=== PATIENT | male | born 1965 | race Caucasian/White ===

== ENCOUNTER 2020-11-02 10:35 | Emergency (ER) | payer BC ==
[2020-11-02] MEDS ORDERED: Doxycycline 100 MG Cap PO ONE (12:47)
--- NOTE | 2020-11-02 14:06 | EDM.PDOC ---
ED HPI GENERAL MEDICAL PROBLEM - General Chief Complaint: Bite:Animal, Insect Stated Complaint: TICK BITE , SWOLLEN HAND Time Seen by Provider: 11/02/20 12:30 Source of Information: Reports: Patient History Limitations: Reports: No Limitations - History of Present Illness INITIAL COMMENTS - FREE TEXT/NARRATIVE: This is a 55-year-old male presents concerns of an area of redness between his second and third digits in the right hand. He reports that he pulled a tick out of the area approximately 48 hours ago. Since this time he is noticed persistent redness and now some swelling extension of the redness at the back of his hand. He is concerned for possible infection. He is not sure what type of tick it was. - Related Data Allergies Allergy/AdvReac Type Severity Reaction Status Date / Time Latex, Natural Rubber Allergy Rash Verified 11/02/20 12:14 Penicillins Allergy Rash Verified 11/02/20 12:14 Home Meds: Home Meds Apixaban [Eliquis] 1 tab PO BID 11/02/20 [History] Doxycycline [Vibra-Tabs] 100 mg PO Q12HR #20 tab 11/02/20 [Rx] Tamsulosin [Flomax] 1 tab PO DAILY 11/02/20 [History] atorvaSTATin [Lipitor] 20 mg PO DAILY 11/02/20 [History] Past Medical History Cardiovascular History: Reports: High Cholesterol Respiratory History: Reports: PE Social & Family History - Tobacco Use Tobacco Use Status *Q: Never Tobacco User ED ROS GENERAL - Review of Systems Review Of Systems: See Below Constitutional: Reports: No Symptoms HEENT: Reports: No Symptoms Respiratory: Reports: No Symptoms Cardiovascular: Reports: No Symptoms Endocrine: Reports: No Symptoms GI/Abdominal: Reports: No Symptoms : Reports: No Symptoms Musculoskeletal: Reports: No Symptoms Skin: Reports: Erythema Neurological: Reports: No Symptoms Psychiatric: Reports: No Symptoms Hematologic/Lymphatic: Reports: No Symptoms Immunologic: Reports: No Symptoms ED EXAM, ANIMAL BITE - Physical Exam Exam: See Below Exam Limited By: No Limitations General Appearance: Alert, WD/WN, No Apparent Distress Eye Exam: Bilateral Eye: EOMI, Normal Inspection, PERRL Ears: Normal External Exam Nose: Normal Inspection Throat/Mouth: Normal Inspection Head: Atraumatic, Normocephalic Neck: Normal Inspection, Supple, Non-Tender, Full Range of Motion Respiratory/Chest: No Respiratory Distress Cardiovascular: Regular Rate, Rhythm GI/Abdominal: No Distention Extremities: Other (Area of swelling and redness between the second and third digits of the right hand with extension of the erythema up to the dorsum of the right hand. No fluctuance or purulence.) Neurological: Alert, Oriented Course - Vital Signs Last Recorded V/S: Last Vital Signs Temp 36.4 C 11/02/20 12:20 Pulse 59 L 11/02/20 12:20 Resp 14 11/02/20 12:20 BP 126/79 11/02/20 12:20 Pulse Ox 98 11/02/20 12:20 - Orders/Labs/Meds Meds: Medications Discontinued Medications Generic Name Dose Route Start Last Admin Trade Name Freq PRN Reason Stop Dose Admin Doxycycline Hyclate 100 mg 11/02/20 12:47 11/02/20 12:54 Doxycycline 100 Mg Cap PO 11/02/20 12:48 100 mg ONETIME ONE Administration - Re-Assessments/Exams Free Text/Narrative Re-Assessment/Exam: 55-year-old male presents with concerns of tick bite and surrounding erythema between the second third digit on his right hand. Has an obvious area of irritation surrounded by redness. He does not know the type of species he was bitten by. At a minimum I think he has a cellulitis from the bite vs perhaps this is erythema migrans. Given how Lyme is endemic in our area and repercussions of not treating, we elected to start him on a course of doxycycline that will cover him for both cellulitis and perhaps tickborne infection. He is visiting our area and have asked him to follow-up with his primary doctor when he returns home. 11/03/20 17:03 Departure - Departure Time of Disposition: 12:48 Disposition: Home, Self-Care 01 Clinical Impression: Tick bite Qualifiers: Encounter type: initial encounter Qualified Code(s): W57.XXXA - Bitten or stung by nonvenomous insect and other nonvenomous arthropods, initial encounter Cellulitis Qualifiers: Site of cellulitis: extremity Site of cellulitis of extremity: finger Laterality: right Qualified Code(s): L03.011 - Cellulitis of right finger - Discharge Information *PRESCRIPTION DRUG MONITORING PROGRAM REVIEWED*: No *COPY OF PRESCRIPTION DRUG MONITORING REPORT IN PATIENT ADRIANA: No Prescriptions: Doxycycline [Vibra-Tabs] 100 mg PO Q12HR #20 tab Instructions: Tick Bite Information, Adult, [id number] Referrals: PCP,None [Primary Care Provider] - Forms: ED Department Discharge Additional Instructions: As discussed, since you pulled a tick off of your hand and you have the findings of possible Lyme disease we are starting you on 12 days of doxycycline. It is good to follow-up with your primary physician when you are back in [place]. If you notice that the redness is increasing, you are increasing pain after couple days on antibiotics please follow-up with a physician promptly. Thank you for trusting us care for you today. Sepsis Event Note (ED) - Evaluation Sepsis Screening Result: No Definite Risk
== END 2020-11-02 13:07 | disposition home or self-care (01) ==
LOC: JP.ED 10:35
DX: S60.460A Insect bite (nonvenomous) of right index finger, initial encounter (principal); S60.462A Insect bite (nonvenomous) of right middle finger, initial encounter; L03.011 Cellulitis of right finger; E78.00 Pure hypercholesterolemia, unspecified; Z88.0 Allergy status to penicillin; Z91.040 Latex allergy status; Z79.01 Long term (current) use of anticoagulants; Z79.899 Other long term (current) drug therapy; W57.XXXA Bitten or stung by nonvenomous insect and other nonvenomous arthropods, initial encounter
CPT/HCPCS: 99282; A9270

== ENCOUNTER 2020-12-14 10:38 | Emergency (ER) | payer BC ==
--- NOTE | 2020-12-14 11:20 | EDM.PDOC ---
ED HPI GENERAL MEDICAL PROBLEM - General Chief Complaint: ENT Problem Stated Complaint: TOOTH PAIN Time Seen by Provider: 12/14/20 11:00 Source of Information: Reports: Patient, Family History Limitations: Reports: No Limitations - History of Present Illness INITIAL COMMENTS - FREE TEXT/NARRATIVE: 55-year-old male has been bothered by a left upper dental pain for the past week, much worse over the past 2 days. He made some calls into the dentist office and has possible openings for appointment in the next 2 days but came in to get some antibiotics and pain control. No significant facial swelling, no fevers or chills. Onset: Gradual Duration: Week(s): (Symptoms for 1 week) Location: Reports: Other (Left maxillary molars) Associated Symptoms: Reports: Headaches (Inflammation is starting to give him sinus congestion and headaches) - Related Data Allergies Allergy/AdvReac Type Severity Reaction Status Date / Time Latex, Natural Rubber Allergy Rash Verified 12/14/20 10:53 Penicillins Allergy Rash Verified 12/14/20 10:53 Home Meds: Home Meds Apixaban [Eliquis] 1 tab PO BID 11/02/20 [History] Tamsulosin [Flomax] 1 tab PO DAILY 11/02/20 [History] atorvaSTATin [Lipitor] 20 mg PO DAILY 11/02/20 [History] Past Medical History Cardiovascular History: Reports: High Cholesterol Respiratory History: Reports: PE Social & Family History - Tobacco Use Tobacco Use Status *Q: Never Tobacco User ED ROS ENT - Review of Systems Review Of Systems: See Below Constitutional: Denies: Fever, Chills HEENT: Reports: Dental Pain, Ear Pain (Some radiation of pain into the left ear) Respiratory: Denies: No Symptoms, Shortness of Breath Cardiovascular: Denies: No Symptoms GI/Abdominal: Denies: No Symptoms ED EXAM, ENT - Physical Exam Exam: See Below Exam Limited By: No Limitations General Appearance: Alert, No Apparent Distress (Looks uncomfortable but not distressed) Eye Exam: Bilateral Eye: Normal Inspection (No periorbital inflammation or findings) Ears: Normal TMs Mouth/Throat: Other (All of the molars on the maxilla have crowns, he is exquisitely tender to percussion of the second molar. No significant gingival inflammation or redness) Course - Vital Signs Last Recorded V/S: Last Vital Signs Temp 97.7 F 12/14/20 10:58 Pulse 56 L 12/14/20 10:58 Resp 14 12/14/20 10:58 BP 162/99 H 12/14/20 10:58 Pulse Ox 97 12/14/20 10:58 - Re-Assessments/Exams Free Text/Narrative Re-Assessment/Exam: 12/14/20 11:19 This patient likely has abscess formation under the crown of the maxillary molars. He will be placed on 300 mg of clindamycin 3 times a day for the next 5 days, given 10 hydrocodone for extra pain control, and encouraged to see a dentist as soon as possible for dental x-rays. Departure - Departure Time of Disposition: 11:27 Disposition: Home, Self-Care 01 Clinical Impression: Dental abscess - Discharge Information Instructions: Dental Abscess Referrals: PCP,None [Primary Care Provider] - Forms: ED Department Discharge Care Plan Goals: Take antibiotic 3 times daily as prescribed, a few doses of ibuprofen will likely be safe and add stronger pain medication if needed. Try to see a dentist as soon as possible for dental x-rays and evaluation. Sepsis Event Note (ED) - Evaluation Sepsis Screening Result: No Definite Risk - Focused Exam Vital Signs: Vital Signs Temp Pulse Resp BP Pulse Ox 12/14/20 10:58 97.7 F 56 L 14 162/99 H 97
== END 2020-12-14 11:28 | disposition home or self-care (01) ==
LOC: JP.ED 10:38
DX: K04.7 Periapical abscess without sinus (principal); E78.00 Pure hypercholesterolemia, unspecified; Z86.711 Personal history of pulmonary embolism; Z79.01 Long term (current) use of anticoagulants; Z79.899 Other long term (current) drug therapy; Z91.040 Latex allergy status; Z88.0 Allergy status to penicillin
CPT/HCPCS: 99282